=== PATIENT | female | born 1985 | race Two or more races ===

== ENCOUNTER 2021-05-22 | Emergency (ER) | payer MEDICAID ==
[~2021-05-22] VITALS: Ht 157.5 cm; Wt 64.0 kg
[2021-05-22 01:03] VITALS: BP 143/83
== END 2021-05-22 01:49 | disposition home or self-care (01) ==
LOC: ER
DX: L60.0 Ingrowing nail (principal); L03.031 Cellulitis of right toe; Z88.6 Allergy status to analgesic agent

== ENCOUNTER 2024-07-04 01:54 | Emergency (ER) | payer MEDICAID ==
[~2024-07-04] VITALS: Ht 157.5 cm; Wt 65.8 kg
[2024-07-04] MEDS: DexAMETHasone SOD PHOS 10MG/1ML VIAL INJ IM ONE (02:37)
[2024-07-04] MEDS: CEPHALEXIN 250 MG CAP PO ONE (02:37)
--- NOTE | 2024-07-04 02:38 | ED.PDOC ---
Musculoskeletal HPI Comments This patient is a 39-year-old female who arrives to the ED today for evaluation of right middle finger swelling and bruising concerns. Patient denies any traumatic events. Patient was seen and [facility] earlier today and diagnosed with a Paronychia condition and prescribed antibiotics. X-rays were performed at that time and they were negative for any acute fracture or foreign body concern. Patient denies any fever nausea or vomiting. Vital signs were stable on arrival. Chief Complaint: Upper Extremity Time Seen by MD: 02:16 Primary Care Provider: [facility] Reviewed Notes: Nurses Notes Allergies: Coded Allergies: Ondansetron (Verified Allergy, Unknown, 05/22/21) Information Source: Patient Mode of Arrival: Ambulatory Location: Right Extremity Location: Finger 3 Timing: Hours Prehospital treatment: None Severity: Moderate Able to Move Extremity: Yes Bear Weight: Fully Pain: None Hand Dominance: Right Mechanism: Unknown Circumstances: Spontaneous Onset of Symptoms: Spontaneous Symptoms: Swelling, Pain DVT Risk Factors: NONE Past Medical History PAST MEDICAL HISTORY: Denies Surgical History: Denies all surgeries BACK ORDER CLERK History: No Pertinent BACK ORDER CLERK History Family History Family History: Reviewed,noncontributory to illness, No family hx of Cancer, No family hx of DM, No family hx of Heart seun, No family hx of HTN, No family hx ofKidney seun, No family hx of Liver seun, No family hx of Lung seun, No family hx of Stroke Social History Smoker: Non-Smoker Alcohol: Denies ETOH Use Drugs: Denies Drug Use Lives In: Home Constitutional: denies: chills, diaphoresis, fatigue, fever, malaise, sweats, weakness, others EENTM: denies: blurred vision, double vision, ear bleeding, ear discharge, ear drainage, ear pain, ear ringing, eye pain, eye redness, hearing loss, mouth pain, mouth swelling, nasal discharge, nose bleeding, nose congestion, nose pain, photophobia, tearing, throat pain, throat swelling, voice changes, others Respiratory: denies: cough, hemoptysis, orthopnea, SOB at rest, shortness of breath, SOB with excertion, stridor, wheezing, others Cardiovascular: denies: chest pain, dizzy spells, diaphoresis, Dyspnea on exertion, edema, irregular heart beat, left arm pain, lightheadedness, palpitations, PND, syncope, others Gastrointestinal: denies: abdomen distended, abdominal pain, blood streaked bowels, constipated, diarrhea, dysphagia, difficulty swallowing, hematemesis, melena, nausea, poor appetite, poor fluid intake, rectal bleeding, rectal pain, vomiting, others Genitourinary: denies: abnormal vagina bleeding, burning, dyspareunia, dysuria, flank pain, frequency, hematuria, incontinence, pain, , vagina discharge, urgency, others Neurological: denies: dizziness, fainting, headache, left sided numbness, left sided weakness, numbness, paresthesia, pre-existing deficit, right sided numbness, right sided weakness, seizure, speech problems, tingling, tremors, weakness, others Musculoskeletal: reports: others (Right middle finger concern); denies: back pain, gout, joint pain, joint swelling, muscle pain, muscle stiffness, neck pain Integumetry: denies: bruises, change in color, change in hair/nails, dryness, laceration, lesions, lumps, rash, wounds, others Allergic/Immunocompromised: denies: Difficulty Healing, Frequent Infections, Hives, Itching, others Hematologic/Lymphatic: denies: anemia, blood clots, easy bleeding, easy bruising, swollen glands, others Endocrine: denies: excessive hunger, excessive sweating, excessive thirst, excessive urination, flushing, intolerance to cold, intolerance to heat, unexplained weight gain, unexplained weight loss, others Psychiatric: denies: anxiety, bipolar disorder, depression, hopeless, panic disorder, schizophrenia, sleepless, suicidal, others Physical Exam General Appearance: No Apparent Distress (Patient was in no distress at time of evaluation.), Normal HEENT: Normal ENT Inspection, Pharynx Normal, TMs Normal Neck: Full Range of Motion, Non-Tender, Normal, Normal Inspection Respiratory: Chest Non-Tender, Lungs Clear, No Accessory Muscle Use, No Respiratory Distress, Normal Breath Sounds Cardiovascular: No Edema, No JVD, No Murmur, No Gallop, Normal Peripheral Pulses, Regular Rate/Rhythm Breast Exam: Deferred Gastrointestinal: No Organomegaly, Non Tender, No Pulsatile Mass, Normal Bowel Sounds, Soft Genitalia: Deferred Pelvic: Deferred Rectal: Deferred Extremities: Other (Right middle finger reveals some patchy ecchymosis noted. Full range of motion displayed. Patient does have some swelling and erythema noted to the cuticle bed. No confluence of fluids for aspiration.) Neurologic: Alert, automobile insurance claim examiner II-XII nml as Tested, No Motor Deficits, Normal Affect, Normal Mood, No Sensory Deficits Cerebellar Function: Normal Reflexes: Normal Skin: Dry, Normal Color, Warm Lymphatic: No Adenopathy Was a procedure done? Was a procedure done?: No Differential Diagnosis EXT Differential Diagnosis: Other (Contusion, paronychia) X-Ray, Labs, Meds, VS Vital Signs Date Time Temp Pulse Resp B/P (MAP) Pulse Ox O2 Delivery O2 Flow Rate FiO2 07/04/24 02:10 98.2 63 15 152/92 (112) 99 X-Ray, Labs, Meds, VS Comment Spent time discussing the patient's right middle finger issues. Advised the patient that it does have like a mild per rhonchi 0. Patient was given a shot of dexamethasone and her 1st dose of Keflex prior to discharge. Advised patient utilize antibiotics as directed by prior provider. Time of 1ST Reevaluation: 02:37 Reevaluation 1ST: Improved Consultation: PCP Patient Education/Counseling: Diagnosis, Treatment Family Education/Counseling: Diagnosis, Treatment Departure 1 Departure Time of Disposition: 02:37 Impression: Primary Impression: Paronychia of finger Disposition: 01 HOME / SELF CARE / HOMELESS Condition: Stable Additional Instructions: Advised patient utilize antibiotics as directed by prior provider. If symptoms continue, patient should return to the ED for evaluation or follow up with primary care provider. Discharged With: Self, Significant Other Critical Care Note Critical Care Time?: No Stability Stability form required: No Heart Score Heart Score: Heart Score Response (Comments) Value History N/A 0 EKG N/A 0 Age N/A 0 Risk Factors N/A 0 Troponin N/A 0 Total 0 PAKO PEREZ PAC Jul 04, 2024 02:38
[2024-07-04 02:41] VITALS: BP 152/92; PULSE 63; RESP 18; TEMP 98.2; O2SAT 99
== END 2024-07-04 02:47 | disposition home or self-care (01) ==
LOC: ER 01:54
DX: L03.011 Cellulitis of right finger (principal); Z88.6 Allergy status to analgesic agent
CPT/HCPCS: 96372; 99283; J1100